=== PATIENT | male | born 1970 | race African-American/Black ===

== ENCOUNTER 2017-05-25 05:14 | Emergency (ER) | payer OTHER ==
[~2017-05-25] VITALS: Ht 177.8 cm; Wt 60.0 kg
[2017-05-25 05:19] VITALS: BP 147/98; PULSE 126; RESP 16; TEMP 99.1; O2SAT 98
[2017-05-25 05:22] VITALS: BP 147/98; PULSE 128; RESP 14; TEMP 99.1; O2SAT 99
--- NOTE | 2017-05-25 05:27 | PD ---
HPI Chief Complaint: Cardiac Complaint Time Seen by Provider: 05:17 Travel History International Travel<30 days: No Contact w/Intl Traveler<30days: No Traveled to known affect area: No History of Present Illness HPI 46-year-old male presents with palpitations and chest pain for the past 2 hours. He does note drinking a pint of alcohol today so history is difficult to obtain. Patient presents by ambulance. He is tachycardic on scene was sinus tachycardia in the 140s. He was given IV fluids in here he is in the 120s. He denies other complaints at this time. He denies recent travel or history of blood clots. PFSH Past Medical History Medical History: Denies Significant Hx Past Surgical History Surgical History: No Previous Surgery Family History Family Myocardial Infarction: Yes Social History Alcohol Use: Yes Tobacco Use: No Substance Use: No Allergies-Medications (Allergen,Severity, Reaction): Coded Allergies: No Known Allergies (Unverified , 05/25/17) Review of Systems ROS Limitations: Poor Historian Except as stated in HPI: all other systems reviewed are Neg Physical Exam Exam Limitations: Poor Historian Narrative GENERAL: Well-nourished, well-developed patient. SKIN: Warm and dry. HEAD: Normocephalic and atraumatic. EYES: No injection or drainage. ENT: No nasal drainage noted. NECK: Supple, trachea midline. CARDIOVASCULAR: Tachycardic rate and regular rhythm RESPIRATORY: Breath sounds equal bilaterally. No accessory muscle use. GASTROINTESTINAL: Abdomen soft, non-tender, nondistended. EXTREMITIES: No edema. NEUROLOGICAL: Awake and alert. Motor and sensory grossly within normal limits. Slurred speech. Data Data Last Documented VS Vital Signs Date Time Temp Pulse Resp B/P Pulse Ox O2 Delivery O2 Flow Rate FiO2 05/25/17 06:02 112 18 151/93 98 Room Air 05/25/17 05:22 99.1 Orders Electrocardiogram (05/25/17 05:17) Ckmb (Isoenzyme) Profile (05/25/17 05:17) Complete Blood Count With Diff (05/25/17 05:17) Comprehensive Metabolic Panel (05/25/17 05:17) D-Dimer (05/25/17 05:17) Magnesium (Mg) (05/25/17 05:17) Prothrombin Time / Inr (Pt) (05/25/17 05:17) Act Partial Throm Time (Ptt) (05/25/17 05:17) Troponin I (05/25/17 05:17) Chest, Single Ap (05/25/17 05:17) Ecg Monitoring (05/25/17 05:17) Bilateral Bp Monitoring (05/25/17 05:17) Iv Access Insert/Monitor (05/25/17 05:17) Oximetry (05/25/17 05:17) Aspirin (Aspirin) (05/25/17 05:30) Sodium Chloride 0.9% Flush (Ns Flush) (05/25/17 05:30) Sodium Chlorid 0.9% 500 Ml Inj (Ns 500 M (05/25/17 05:30) Drug Screen, Random Urine (05/25/17 05:17) Alcohol (Ethanol) (05/25/17 05:17) Lactic Acid (05/25/17 05:29) Urinalysis - C+S If Indicated (05/25/17 05:29) CKMB (05/25/17 05:20) CKMB% (05/25/17 05:20) Sodium Chlor 0.9% 1000 Ml Inj (Ns 1000 M (05/25/17 06:45) Labs Laboratory Tests Test 05/25/17 05/25/17 05:20 05:40 White Blood Count 13.5 TH/MM3 Red Blood Count 4.51 MIL/MM3 Hemoglobin 13.3 GM/DL Hematocrit 39.9 % Mean Corpuscular Volume 88.5 FL Mean Corpuscular Hemoglobin 29.4 PG Mean Corpuscular Hemoglobin 33.3 % Concent Red Cell Distribution Width 14.4 % Platelet Count 268 TH/MM3 Mean Platelet Volume 7.6 FL Neutrophils (%) (Auto) 80.3 % Lymphocytes (%) (Auto) 11.2 % Monocytes (%) (Auto) 8.2 % Eosinophils (%) (Auto) 0.1 % Basophils (%) (Auto) 0.2 % Neutrophils # (Auto) 10.8 TH/MM3 Lymphocytes # (Auto) 1.5 TH/MM3 Monocytes # (Auto) 1.1 TH/MM3 Eosinophils # (Auto) 0.0 TH/MM3 Basophils # (Auto) 0.0 TH/MM3 CBC Comment DIFF FINAL Differential Comment Prothrombin Time 11.4 SEC Prothromb Time International 1.0 RATIO Ratio Activated Partial 25.2 SEC Thromboplast Time D-Dimer Quantitative (PE/DVT) 0.29 MG/L FEU Sodium Level 137 MEQ/L Potassium Level 4.1 MEQ/L Chloride Level 104 MEQ/L Carbon Dioxide Level 22.0 MEQ/L Anion Gap 11 MEQ/L Blood Urea Nitrogen 15 MG/DL Creatinine 1.33 MG/DL Estimat Glomerular Filtration 70 ML/MIN Rate Random Glucose 97 MG/DL Calcium Level 8.3 MG/DL Magnesium Level 2.0 MG/DL Total Bilirubin 0.8 MG/DL Aspartate Amino Transf 32 U/L (AST/SGOT) Alanine Aminotransferase 30 U/L (ALT/SGPT) Alkaline Phosphatase 81 U/L Total Creatine Kinase 244 U/L Creatine Kinase MB 2.6 NG/ML Troponin I 0.03 NG/ML Total Protein 8.2 GM/DL Albumin 4.0 GM/DL Ethyl Alcohol Level LESS THAN 3 MG/DL Lactic Acid Level 1.7 mmol/L MDM Medical Decision Making Medical Screen Exam Complete: Yes Emergency Medical Condition: Yes Medical Record Reviewed: Yes (past history confirmed) Interpretation(s) EKG is sinus tachycardia at [address] changes or consecutive T-wave inversion CBC & BMP Diagram 05/25/17 05:20 Last 24 hours Impressions Chest X-Ray 05/25/17516 Signed Impressions: Service Date/Time: Thursday, May 25, 2017 05:18 - CONCLUSION: Cardiomegaly. No acute cardiopulmonary disease. 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 These risks include cardiac dysfunction, cardiac dysrhythmia, possible heart attack, possible stroke or . The patient indicated understanding of these risks and appeared to have the capacity to make this decision. Diagnosis Primary Impression: Chest pain Qualified Code: R07.9 - Chest pain, unspecified type Additional Impression: Palpitations Patient Instructions: General Instructions Additional Instructions: return for completion of testing when available Med/Other Pt SpecificInfo: No Change to Meds Disposition: 07 AGAINST MEDICAL ADVICE Condition: Stable Clemencia Sousa MD May 25, 2017 05:27 Clemencia Sousa MD May 25, 2017 05:27
[2017-05-25] MEDS ORDERED: SODIUM CHLORID 0.9% 500 ML INJ 500 ML IV ONE (05:30)
[2017-05-25] MEDS ORDERED: ASPIRIN 325 MG TAB PO ONE (05:30)
[2017-05-25] MEDS ORDERED: SODIUM CHLORIDE 0.9% FLUSH 10 ML FLUSH IVF PRN (05:30)
[2017-05-25 05:32] LABS: AUTOMATED NEUTROPHIL # 10.8 TH/MM3 (1.8-7.7); BASOPHIL % 0.2 % (0.0-2.0); EOSINOPHIL % 0.1 % (0.0-4.0); HEMATOCRIT 39.9 % (39.0-51.0); HEMO FLAGS DIFF FINAL; LYMPH % 11.2 % (9.0-44.0); LYMPHOCYTE # 1.5 TH/MM3 (1.0-4.8); MEAN CELL VOLUME 88.5 FL (80.0-100.0); MEAN CORPUSCULAR HEMOGLOBIN 29.4 PG (27.0-34.0); MEAN CORPUSCULAR HGB CONC 33.3 % (32.0-36.0); MONO % 8.2 % (0.0-8.0); NEUT % 80.3 % (16.0-70.0); PLATELET COUNT 268 TH/MM3 (150-450); RED BLOOD COUNT 4.51 MIL/MM3 (4.50-5.90); RED CELL DISTRIBUTION WIDTH 14.4 % (11.6-17.2); WHITE BLOOD COUNT 13.5 TH/MM3 (4.0-11.0)
--- NOTE | 2017-05-25 05:52 | RADRPT ---
EXAM DATE/TIME: 05/25/2017 05:18 [facility] COMPARISON: No previous studies available for comparison. INDICATIONS : Chest pain. MEDICAL HISTORY : None. SURGICAL HISTORY : None. ENCOUNTER: Initial ACUITY: 1 day PAIN SCORE: 6/10 LOCATION: Left chest FINDINGS: The cardiac silhouette is enlarged in transverse diameter. The lungs are free of acute parenchymal op acity. No effusions are identified. Osseous structures are intact. CONCLUSION: Cardiomegaly. No acute cardiopulmonary disease. Timothy Dong MD on May 25, 2017 at 5:50 Board Certified Radiologist. This report was verified electronically.
[2017-05-25 05:56] LABS: ALT (GPT) 30 U/L (12-78); ANION GAP 11 MEQ/L (5-15); AST (GOT) 32 U/L (15-37); BLOOD UREA NITROGEN 15 MG/DL (7-18); CHLORIDE 104 MEQ/L (98-107); GLOMERULAR FILTRATION RATE 70 ML/MIN (>89); POTASSIUM 4.1 MEQ/L (3.5-5.1); SODIUM (NA) 137 MEQ/L (136-145)
[2017-05-25 05:58] LABS: ALKALINE PHOSPHATASE 81 U/L (45-117); CREATINE KINASE 244 U/L (39-308); TOTAL BILIRUBIN ADULT 0.8 MG/DL (0.2-1.0)
[2017-05-25 06:02] VITALS: BP 151/93; PULSE 112; RESP 18; O2SAT 98
[2017-05-25 06:14] LABS: CKMB 2.6 NG/ML (0.5-3.6)
[2017-05-25 06:25] LABS: APTT (PATIENT) 25.2 SEC (24.3-30.1); PROTHROMBIN TIME - PATIENT 11.4 SEC (9.8-11.6)
[2017-05-25] MEDS ORDERED: SODIUM CHLOR 0.9% 1000 ML INJ 1,000 ML IV ONE (06:45)
--- NOTE | 2017-05-25 13:14 | EKG ---
Date Performed: 05/25/2017 Time Performed: 05:17:22 PTAGE: 46 years EKG: SINUS TACHYCARDIA BORDERLINE RIGHT AXIS DEVIATION ST ELEVATION, PROBABLY EARLY REPOLARIZATI ON ABNORMAL RHYTHM ECG NO PREVIOUS TRACING DOCTOR: Nancy Bryant Interpretating Date/Time 05/25/2017 13:11:13
== END 2017-05-25 06:45 | disposition left against medical advice (07) ==
LOC: NEPC 05:14
DX: R07.9 Chest pain, unspecified (principal); R00.2 Palpitations; R00.0 Tachycardia, unspecified; R94.31 Abnormal electrocardiogram [ECG] [EKG]; I51.7 Cardiomegaly
CPT/HCPCS: 71010; 80053; 80307; 82550; 82552; 83605; 83735; 84484; 85025; 85379; 85610; 85730; 93005; 96360; 99285; J7040

== ENCOUNTER 2017-11-18 01:19 | Emergency (ER) | payer SELFPAY ==
[~2017-11-18] VITALS: Ht 177.8 cm; Wt 90.0 kg
[2017-11-18 01:20] VITALS: BP 163/99; PULSE 101; RESP 16; TEMP 98.7; O2SAT 97
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
[2017-11-18] MEDS ORDERED: LORazepam 2 MG/ML VIAL IM ONE (02:30)
[2017-11-18] MEDS ORDERED: ZIPRASIDONE MESYLATE 20 MG VIAL IM ONE (02:30)
[2017-11-18 03:30] VITALS: RESP 15
[2017-11-18 03:38] LABS: ALBUMIN 4.2 GM/DL (3.4-5.0); ALT (GPT) 33 U/L (12-78); AST (GOT) 28 U/L (15-37); AUTOMATED NEUTROPHIL # 7.6 TH/MM3 (1.8-7.7); BASOPHIL # 0.3 TH/MM3 (0-0.2); BASOPHIL % 2.5 % (0.0-2.0); BICARBONATE 20.9 MEQ/L (21.0-32.0); BLOOD UREA NITROGEN 24 MG/DL (7-18); CALCIUM 8.8 MG/DL (8.5-10.1); CHLORIDE 108 MEQ/L (98-107); CREATININE 1.63 MG/DL (0.60-1.30); EOSINOPHIL # 0.2 TH/MM3 (0-0.4); EOSINOPHIL % 1.7 % (0.0-4.0); GLOMERULAR FILTRATION RATE 55 ML/MIN (>89); GLUCOSE,RANDOM 85 MG/DL (74-106); HEMATOCRIT 36.2 % (39.0-51.0); HEMOGLOBIN 13.4 GM/DL (13.0-17.0); LYMPH % 20.9 % (9.0-44.0); LYMPHOCYTE # 2.3 TH/MM3 (1.0-4.8); MEAN CELL VOLUME 89.3 FL (80.0-100.0); MEAN PLATELET VOLUME 7.8 FL (7.0-11.0); MONO % 7.2 % (0.0-8.0); MONOCYTE # 0.8 TH/MM3 (0-0.9); NEUT % 67.7 % (16.0-70.0); PLATELET COUNT 348 TH/MM3 (150-450); RED BLOOD COUNT 4.06 MIL/MM3 (4.50-5.90); RED CELL DISTRIBUTION WIDTH 15.3 % (11.6-17.2); SODIUM (NA) 139 MEQ/L (136-145); WHITE BLOOD COUNT 11.2 TH/MM3 (4.0-11.0)
[2017-11-18 03:48] LABS: ALKALINE PHOSPHATASE 91 U/L (45-117); TOTAL BILIRUBIN ADULT 0.7 MG/DL (0.2-1.0); TOTAL PROTEIN 8.4 GM/DL (6.4-8.2)
[2017-11-18 10:39] VITALS: BP 137/86; PULSE 98; RESP 18; O2SAT 100
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
--- NOTE | 2017-11-18 13:50 | PD ---
Physical Exam Date Seen by Provider: Nov 18, 2017 Time Seen by Provider: 13:49 Narrative 47-year-old male with history of bipolar disorder presents emergency department for voluntary psychiatric evaluation, he was medically cleared and seen by psychiatric services. Patient was felt stable for outpatient discharge through Dr. Uribe. Patient remains medically stable at time of discharge. Patient is to follow-up as per psychiatric note. Data Data Last Documented VS Vital Signs Date Time Temp Pulse Resp B/P (MAP) Pulse Ox O2 Delivery O2 Flow Rate FiO2 11/18/17 10:39 98 18 137/86 (103) 100 Room Air 11/18/17 01:20 98.7 Orders Orders Complete Blood Count With Diff (11/18/17 02:17) Comprehensive Metabolic Panel (11/18/17 02:17) Thyroid Stimulating Hormone (11/18/17 02:17) Psych Screen (11/18/17 02:17) Lorazepam Inj (Ativan Inj) (11/18/17 02:30) Drug Screen, Random Urine (11/18/17 02:17) Alcohol (Ethanol) (11/18/17 02:17) Salicylates (Aspirin) (11/18/17 02:17) Ziprasidone Inj (Geodon Inj) (11/18/17 02:30) Restraints Violent (11/18/17 02:18) Diet Regular Basic (11/18/17 Breakfast) Diet Regular Basic (11/18/17 Lunch) Ed Discharge Order (11/18/17 13:50) Labs Laboratory Tests Test 11/18/17 02:50 11/18/17 09:15 White Blood Count 11.2 TH/MM3 Red Blood Count 4.06 MIL/MM3 Hemoglobin 13.4 GM/DL Hematocrit 36.2 % Mean Corpuscular Volume 89.3 FL Mean Corpuscular Hemoglobin 33.0 PG Mean Corpuscular Hemoglobin Concent 37.0 % Red Cell Distribution Width 15.3 % Platelet Count 348 TH/MM3 Mean Platelet Volume 7.8 FL Neutrophils (%) (Auto) 67.7 % Lymphocytes (%) (Auto) 20.9 % Monocytes (%) (Auto) 7.2 % Eosinophils (%) (Auto) 1.7 % Basophils (%) (Auto) 2.5 % Neutrophils # (Auto) 7.6 TH/MM3 Lymphocytes # (Auto) 2.3 TH/MM3 Monocytes # (Auto) 0.8 TH/MM3 Eosinophils # (Auto) 0.2 TH/MM3 Basophils # (Auto) 0.3 TH/MM3 CBC Comment AUTO DIFF Differential Comment AUTO DIFF CONFIRMED Platelet Estimate NORMAL Platelet Morphology Comment NORMAL Red Cell Morphology Comment NORMAL Blood Urea Nitrogen 24 MG/DL Creatinine 1.63 MG/DL Random Glucose 85 MG/DL Total Protein 8.4 GM/DL Albumin 4.2 GM/DL Calcium Level 8.8 MG/DL Alkaline Phosphatase 91 U/L Aspartate Amino Transf (AST/SGOT) 28 U/L Alanine Aminotransferase (ALT/SGPT) 33 U/L Total Bilirubin 0.7 MG/DL Sodium Level 139 MEQ/L Potassium Level 3.7 MEQ/L Chloride Level 108 MEQ/L Carbon Dioxide Level 20.9 MEQ/L Anion Gap 10 MEQ/L Estimat Glomerular Filtration Rate 55 ML/MIN Thyroid Stimulating Hormone 3rd Gen 0.970 uIU/ML Salicylates Level LESS THAN 1.7 MG/DL Ethyl Alcohol Level LESS THAN 3 MG/DL Urine Opiates Screen NEG Urine Barbiturates Screen NEG Urine Amphetamines Screen NEG Urine Benzodiazepines Screen NEG Urine Cocaine Screen POS Urine Cannabinoids Screen POS MDM Medical Record Reviewed: Yes Supervised Visit with MAC: Yes Narrative Course 47-year-old male with history of bipolar disorder presents emergency department for voluntary psychiatric evaluation, he was medically cleared and seen by psychiatric services. Patient was felt stable for outpatient discharge through Dr. Uribe. Patient remains medically stable at time of discharge. Patient is to follow-up as per psychiatric note. Diagnosis Primary Impression: Cocaine abuse Departure Forms: Work Release Enter return to work date: Nov 19, 2017 Condition: Stable Jonas Truong Nov 18, 2017 13:50
== END 2017-11-18 14:45 | disposition home or self-care (01) ==
LOC: NEPD 01:19 → NEPJ 14:45
DX: F14.10 Cocaine abuse, uncomplicated (principal); F11.10 Opioid abuse, uncomplicated; I10 Essential (primary) hypertension; E78.00 Pure hypercholesterolemia, unspecified; F31.9 Bipolar disorder, unspecified
CPT/HCPCS: 80053; 80307; 84443; 85025; 96372; 99284; J2060; J3486

== ENCOUNTER 2017-12-26 20:42 | Inpatient (IN) | payer OTHER ==
[~2017-12-26] VITALS: Ht 177.8 cm; Wt 93.0 kg
[2017-12-26 21:57] VITALS: BP 117/78; PULSE 128; RESP 16; TEMP 97.9; O2SAT 99
[2017-12-26] MEDS ORDERED: LISI-519 PO (22:01)
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
[2017-12-26 22:43] LABS: AUTOMATED NEUTROPHIL # 11.1 TH/MM3 (1.8-7.7); BASOPHIL % 0.3 % (0.0-2.0); EOSINOPHIL # 0.1 TH/MM3 (0-0.4); EOSINOPHIL % 0.8 % (0.0-4.0); HEMATOCRIT 39.7 % (39.0-51.0); HEMOGLOBIN 13.5 GM/DL (13.0-17.0); LYMPH % 17.1 % (9.0-44.0); LYMPHOCYTE # 2.7 TH/MM3 (1.0-4.8); MEAN CELL VOLUME 85.4 FL (80.0-100.0); MEAN CORPUSCULAR HEMOGLOBIN 29.1 PG (27.0-34.0); MEAN PLATELET VOLUME 7.6 FL (7.0-11.0); MONO % 10.6 % (0.0-8.0); MONOCYTE # 1.7 TH/MM3 (0-0.9); NEUT % 71.2 % (16.0-70.0); PLATELET COUNT 387 TH/MM3 (150-450); RED BLOOD COUNT 4.65 MIL/MM3 (4.50-5.90); RED CELL DISTRIBUTION WIDTH 14.6 % (11.6-17.2); WHITE BLOOD COUNT 15.6 TH/MM3 (4.0-11.0)
[2017-12-26 22:55] LABS: ALBUMIN 4.4 GM/DL (3.4-5.0); ALT (GPT) 78 U/L (12-78); AST (GOT) 153 U/L (15-37); BICARBONATE 23.3 MEQ/L (21.0-32.0); BLOOD UREA NITROGEN 26 MG/DL (7-18); CALCIUM 9.1 MG/DL (8.5-10.1); CHLORIDE 104 MEQ/L (98-107); GLOMERULAR FILTRATION RATE 53 ML/MIN (>89); GLUCOSE,RANDOM 91 MG/DL (74-106); SODIUM (NA) 138 MEQ/L (136-145)
[2017-12-26 22:57] LABS: ALKALINE PHOSPHATASE 114 U/L (45-117); TOTAL BILIRUBIN ADULT 0.6 MG/DL (0.2-1.0); TOTAL PROTEIN 8.6 GM/DL (6.4-8.2)
[2017-12-27 01:13] VITALS: BP 135/68; PULSE 115; RESP 18; TEMP 98.6; O2SAT 99
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
[2017-12-27] MEDS ORDERED: OLANZapine IM 10 MG VIAL IM ONE (02:45)
--- NOTE | 2017-12-27 03:05 | RADRPT ---
EXAM DATE/TIME: 12/27/2017 02:44 [facility] COMPARISON: No previous studies available for comparison. INDICATIONS : Left foot pain, no injury. MEDICAL HISTORY : None. SURGICAL HISTORY : None. ENCOUNTER: Initial ACUITY: 1 day PAIN SCORE: 9/10 LOCATION: Left foot, fifth digit. FINDINGS: Three view examination of the left foot demonstrates no soft tissue swelling, dislocation, or fractur e. The tarsal bones appear intact. The interphalangeal and metatarsophalangeal joints are intact. The calcaneus is intact. Bony mineralization is normal. The fibular sesamoid is bipartite and has moderate degenerative/hypertrophic changes. CONCLUSION: No acute abnormality of the left foot/little toe. Degenerative changes of the fibular sesamoid noted. Malik Jeronimo MD on December 27, 2017 at 3:02 Board Certified Radiologist. This report was verified electronically.
[2017-12-27 10:40] VITALS: BP 126/73; PULSE 106; RESP 18; TEMP 98.4; O2SAT 98
[2017-12-27] MEDS ORDERED: LORA-474 PO (12:17)
[2017-12-27] MEDS ORDERED: SERO100T PO (12:17)
[2017-12-27] MEDS ORDERED: ZOLO50TA PO (12:17)
[2017-12-27] MEDS ORDERED: HALOPERIDOL LACTATE 5 MG/ML AMP ONE (15:09)
[2017-12-27] MEDS ORDERED: LORazepam 2 MG/ML VIAL ONE (15:10)
[2017-12-27] MEDS ORDERED: diphenhydrAMINE HCL 50 MG/ML VIAL ONE (15:13)
[2017-12-28 06:34] VITALS: BP 159/98; PULSE 82; RESP 18; TEMP 97.7; O2SAT 100
[2017-12-28 08:38] LABS: BICARBONATE 28.1 MEQ/L (21.0-32.0); BLOOD UREA NITROGEN 15 MG/DL (7-18); CALCIUM 8.6 MG/DL (8.5-10.1); CHLORIDE 103 MEQ/L (98-107); CHOLESTEROL 216 MG/DL (120-200); CHOLESTEROL/ HDL RATIO 4.77 RATIO; GLOMERULAR FILTRATION RATE 72 ML/MIN (>89); GLUCOSE,RANDOM 86 MG/DL (74-106); HDL CHOLESTEROL 45.2 MG/DL (40.0-60.0); LDL CHOLESTEROL 137 MG/DL (0-99); SODIUM (NA) 139 MEQ/L (136-145); TRIGLYCERIDES 171 MG/DL (42-150)
[2017-12-28 12:40] LABS: HEMOGLOBIN A1C 5.5 % (4.3-6.0)
[2017-12-28] MEDS ORDERED: hydrOXYzine HCL 50 MG TAB PO PRN (12:45)
[2017-12-28] MEDS ORDERED: diphenhydrAMINE HCL 50 MG CAP PO PRN (12:45)
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
--- NOTE | 2017-12-28 15:09 | PD.CONS ---
HPI Service [facility] Consult Requested By Dr. Malik Schilling Reason for Consult Medical management Primary Care Physician Dr. Ariela Wells Diagnoses: History of Present Illness Mr. Urena is a 47 y/o AAM with HTN, hyperlipidemia and depression. He was brought into the ED at [facility] as a New Act on 12/26/17 and per the ER documentation the pt reportedly breaking into some living facility and taking off all of his clothes and made aggressive statements and movements towards the resident of the home. UDS was negative. Pt reports that his problem was pain in the left foot because of some "bug bites." Foot Xray performed in the ED noted no acute abnormality of the left foot/little toe and degenerative changes of the fibular sesamoid noted. Pt states that he has been taking his home medications, Lisinopril/HCTZ and Simvastatin. He denies any abd pain, chest pain , nausea/vomiting, reflux, headaches, dizziness, palpitations, or SOB. Review of Systems Constitutional: DENIES: Fever, Chills, Night Sweats Respiratory: DENIES: Shortness of breath Cardiovascular: DENIES: Chest pain, Lower Extremity Edema Gastrointestinal: DENIES: Abdominal pain, Nausea, Vomiting Genitourinary: DENIES: Hematuria, Dysuria Neurologic: DENIES: Headache, Localized weakness Past Family Social History Past Medical History HTN Hyperlipidemia Depression Insomnia Past Surgical History None reported Reported Medications Per [facility] Records: --Lisinopril/HCTZ 10/12.5mg 2 tablets PO DAILY --Simvastatin 10mg PO QHS --Trazodone 100Mg PO i-ii QHS ?Zoloft (Sertraline HCl) 50 Mg Tab 50 Mg PO DAILY ?Ativan (Lorazepam) 1 Mg Tab 1 Mg PO Q6H PRN ?Seroquel (Quetiapine Fumarate) 100 Mg Tab 100 Mg PO HS Allergies: Coded Allergies: No Known Allergies (Unverified Adverse Reaction, Unknown, 12/26/17) Family History Noncontributory Social History Pt denies any tobacco use or alcohol use Pt had previous positive UDS for cocaine and marijuana in October 2017 Physical Exam Vital Signs Vital Signs Date Time Temp Pulse Resp B/P (MAP) Pulse Ox O2 Delivery O2 Flow Rate FiO2 12/28/17 06:34 97.7 82 18 159/98 (118) 100 Physical Exam GENERAL: This is a well-nourished, well-developed patient, in no apparent distress. SKIN: Dry cracked skin on the feet HEENT: Atraumatic. Normocephalic. No temporal or scalp tenderness. No scleral icterus. Airway patent. NECK: Trachea midline, supple, nontender. CARDIO: Regular. RESP: CTA bilaterally. No wheezes, rales, or rhonchi. ABD: +BS, soft, non-tender, nondistended. EXT: Extremities without clubbing, cyanosis, or edema. NEURO: Awake and alert. Motor and sensory grossly within normal limits. Normal speech. Laboratory Laboratory Tests Test 12/28/17 06:31 Blood Urea Nitrogen 15 Creatinine 1.30 Random Glucose 86 Calcium Level 8.6 Sodium Level 139 Potassium Level 3.7 Chloride Level 103 Carbon Dioxide Level 28.1 Anion Gap 8 Estimat Glomerular Filtration Rate 72 Hemoglobin A1c 5.5 Triglycerides Level 171 Cholesterol Level 216 LDL Cholesterol 137 HDL Cholesterol 45.2 Cholesterol/HDL Ratio 4.77 Result Diagram: 12/26/17 2157 12/28/17 0631 Imaging Last Impressions Foot X-Ray 12/27/17 0000 Signed Impressions: Service Date/Time: Wednesday, December 27, 2017 02:44 - CONCLUSION: No acute abnormality of the left foot/little toe. Degenerative changes of the fibular sesamoid noted. Malik Jeronimo MD Assessment and Plan Problem List: (1) Paranoid type schizophrenia, chronic state ICD Codes: F20.0 - Paranoid schizophrenia Plan: - Pt is a 47 y/o male with HTN and hyperlipidemia who was admitted under New Act to the psychiatric unit on 12/26/17 as per the ER documentation the pt reportedly breaking into some living facility and taking off all of his clothes and made aggressive statements and movements towards the resident of the home. - UDS was negative. - Management per Psychiatry - Pts main complaint is pain in the left foot because of some "bug bites." - Foot Xray performed in the ED noted no acute abnormality of the left foot/ little toe and degenerative changes of the fibular sesamoid noted. - We will give 3 doses of Naproxen and apply Bacitracin BID for the abrasions noted on his left foot which look like he had scratched some bug bites. (2) Hypertension, benign ICD Codes: I10 - Essential (primary) hypertension Status: Chronic Plan: - Cont. home meds - Monitor (3) Hyperlipidemia ICD Codes: E78.5 - Hyperlipidemia, unspecified Status: Chronic Plan: - Cont. home meds Assessment and Plan Patient examined. Assessment and plan formulated with Laurel Lyn PA-C. I agree with the above. paranoid shizophrenia. htn stable. pt focused on "bug bites and abrasion on ankle" asking for abx and pain med. will give some naprosyn and topical abx. Laurel Lyn Dec 28, 2017 15:09 Humberto Khan MD Dec 28, 2017 16:24
[2017-12-28] MEDS ORDERED: LISI10TA PO (16:01)
[2017-12-28] MEDS ORDERED: SIMV10TA PO (16:01)
[2017-12-28 17:44] VITALS: BP 140/87; PULSE 84; RESP 18; TEMP 98; O2SAT 99
[2017-12-28] MEDS: BACITRACIN TOP OINT 15 GM TUBE TOPICAL SCH ×2 (18:35→20:57)
[2017-12-28] MEDS: NAPROXEN 500 MG TAB PO SCH (18:35)
[2017-12-28] MEDS: QUEtiapine FUMARATE 300 MG TAB PO SCH (20:45)
[2017-12-28] MEDS ORDERED: NON-FORMULARY DRUG (Simvastatin 10 MG) PO SCH (21:00)
[2017-12-28] MEDS: PRAVASTATIN SOD 20 MG TAB PO SCH (22:00)
[2017-12-29] MEDS: NAPROXEN 500 MG TAB PO SCH ×2 (05:00→16:35)
[2017-12-29 06:20] VITALS: BP 155/90; PULSE 81; RESP 17; TEMP 98.1; O2SAT 96
[2017-12-29] MEDS ORDERED: NON-FORMULARY DRUG (Lisinopril-Hctz 2 TAB) PO SCH (09:00)
[2017-12-29] MEDS ORDERED: LISINOPRIL 5 MG TAB PO SCH (09:00)
[2017-12-29] MEDS ORDERED: HYDROCHLOROTHIAZIDE 25 MG TAB PO SCH (09:00)
[2017-12-29] MEDS: LISINOPRIL 10 MG TAB PO SCH (09:27)
[2017-12-29] MEDS: SERTRALINE HCL 50 MG TAB PO SCH (09:27)
[2017-12-29] MEDS: BACITRACIN TOP OINT 15 GM TUBE TOPICAL SCH ×2 (09:29→20:59)
[2017-12-29] MEDS: HYDROCHLOROTHIAZIDE 12.5 MG CAP PO SCH (11:00)
--- NOTE | 2017-12-29 12:05 | PD.PSY.CON ---
Provisional Diagnosis Admission Date Dec 27, 2017 at 15:18 [place] I. Schizophrenia chronic paranoid type F 20.0 History of Present Illness Service Psychiatry Consult Requested By Psychiatry Reason for Consult 2nd Opinion Primary Care Physician Unknown HPI Pt seen and discussed with staff. Chart reviewed. Pt is a 47 YOAAM admitted to [facility] under a BA due to psychosis after he broke into a home naked, was aggressive and told police he was being attacked by bugs. Pt states that he has a previous diagnosis of bipolar disorder and schizophrenia but only takes seroquel "when I can't sleep". He points to bugs and lesions on his body that are not present and insists that his entire foot and leg are black which is not true. Inisght is poor and memory of events leading to BA is impaired. He actively denies cocaine usage despite positive lab, and states DOC are pills. Pt was agitated upon admission and received an ETO of haldol, ativan and benadryl in ED to maintain safety. . P Review of Systems Psychiatric: COMPLAINS OF: Confusion, Mood changes, Hallucinations, Agitation Past Family Social History Coded Allergies: No Known Allergies (Unverified Adverse Reaction, Unknown, 12/26/17) Past Medical History previous treatment and hospitalization for bipolar disorder and schizophrenia Reported Medications Simvastatin (Simvastatin) 10 Mg Tab, 10 MG PO HS for Cholesterol Management, # 30 TAB 0 Refills 12/28/17 Lisinopril-Hctz (Lisinopril-Hctz) 10-12.5 Mg Tab, 2 TAB PO DAILY for Blood Pressure Management, #30 TAB 0 Refills 12/28/17 Sertraline (Zoloft) 50 Mg Tab, 50 MG PO DAILY, #30 TAB 0 Refills 12/27/17 Lorazepam (Ativan) 1 Mg Tab, 1 MG PO Q6H Y for ANXIETY AND/OR AGITATION, #10 TAB 0 Refills 12/27/17 Quetiapine (Seroquel) 100 Mg Tab, 100 MG PO HS, #30 TAB 0 Refills 12/27/17 Current Medications Medications (Trade) Dose Ordered Sig/Justine Route Start Time Stop Time Status Last Admin (Benadryl) 50 mg HS PRN PO 12/28/17 12:45 (Atarax) 50 mg Q6H PRN PO 12/28/17 12:45 (SEROquel) 300 mg HS PO 12/28/17 21:00 12/28/17 20:45 (Zoloft) 50 mg DAILY PO 12/29/17 09:00 12/29/17 09:27 (Naprosyn) 500 mg Q12H PO 12/28/17 17:00 12/29/17 17:01 12/29/17 05:00 (Baciguent Oint) 1 applic Q12HR TOPICAL 12/28/17 16:15 12/29/17 09:29 (Prinivil) 20 mg DAILY PO 12/29/17 09:00 12/29/17 09:27 (Pravachol) 20 mg HS PO 12/28/17 21:00 12/28/17 22:00 (Microzide) 25 mg DAILY PO 12/29/17 11:00 Family Psych History "all of them are crazy" Social History Works for a [employer] agency. Lives alone. Hx of substance abuse. Reports that he has been [facility] Patient's Strengths (min. 2) Patient verbal irritable axis health care Physical Exam No acute distress. See ED Vital Signs Vital Signs Date Time Temp Pulse Resp B/P (MAP) Pulse Ox O2 Delivery O2 Flow Rate FiO2 12/29/17 06:20 98.1 81 17 155/90 (111) 96 12/27/17 10:40 Room Air Mental Status Examination Appearance: Appropriate Consciousness: Alert Orientation: Person Motor Activity: Normal gait Speech: Rapid Language: Adequate Fund of Knowledge: Adequate Attention and Concentration: Easily Distracted Memory: Impaired Mood: Anxious, Irritable Affect: Anxious Thought Process & Associations: Tangential Thought Content: Bizarre thinking, Delusional Hallucination Type: Visual, Tactile Delusion Type: Bizarre Suicidal Ideation: No Suicidal Plan: No Suicidal Intention: No Homicidal Ideation: No Homicidal Plan: No Homicidal Intention: No Insight: Poor Judgment: Poor Assessment & Plan Problem List: (1) Paranoid type schizophrenia, chronic state ICD Codes: F20.0 - Paranoid schizophrenia Assessment & Plan I agree that pt meets criteria for involuntary hospitalization due to current states of psychosis and recent aggression due to psychosis. 2nd Opinion paperwork completed. Estimated LOS: days Request HC Surrog/Guard Advoc?: Shelbi Kennedy MD Dec 29, 2017 12:05
[2017-12-29 17:30] VITALS: BP 138/93; PULSE 94; RESP 18; TEMP 97.9; O2SAT 98
[2017-12-29] MEDS: PRAVASTATIN SOD 20 MG TAB PO SCH (20:58)
[2017-12-29] MEDS: QUEtiapine FUMARATE 300 MG TAB PO SCH (20:59)
[2017-12-30 06:01] VITALS: BP 140/83; PULSE 80; RESP 18; TEMP 97.6; O2SAT 97
[2017-12-30] MEDS: BACITRACIN TOP OINT 15 GM TUBE TOPICAL SCH (09:00)
[2017-12-30] MEDS: LISINOPRIL 10 MG TAB PO SCH (09:59)
[2017-12-30] MEDS: SERTRALINE HCL 50 MG TAB PO SCH (09:59)
[2017-12-30] MEDS: HYDROCHLOROTHIAZIDE 12.5 MG CAP PO SCH (09:59)
--- NOTE | 2017-12-30 11:50 | HHI.PYPN ---
Subjective Remarks Patient seen today in day room with nurse Bea, chart reviewed, patient compliant medications, patient discussed with nurse. Patient calmer less vigilance today more cooperative with better eye contact. Today he denies suicidality homicidality voices or visions. States he desires still to get into [facility] though he has a home to return to. We will have counselor and staff outpatient contact [facility] to verify bed assignment otherwise continue medication no change Review of Systems Except as stated in HPI: all other systems reviewed are Neg Mental Status Examination Appearance: Appropriate Consciousness: Alert Orientation: Person Motor Activity: Normal gait Speech: Rapid Language: Adequate Fund of Knowledge: Adequate Attention and Concentration: Easily Distracted Memory: Impaired Mood: Anxious, Irritable Affect: Anxious Thought Process & Associations: Tangential Thought Content: Bizarre thinking, Delusional Hallucination Type: Visual, Tactile Delusion Type: Bizarre Suicidal Ideation: No Suicidal Plan: No Suicidal Intention: No Homicidal Ideation: No Homicidal Plan: No Homicidal Intention: No Insight: Poor Judgment: Poor Results Vitals/IOs Vital Signs Date Time Temp Pulse Resp B/P (MAP) Pulse Ox O2 Delivery O2 Flow Rate FiO2 12/30/17 06:01 97.6 80 18 140/83 (102) 97 12/27/17 10:40 Room Air Assessment & Plan Problem List: (1) Paranoid type schizophrenia, chronic state ICD Codes: F20.0 - Paranoid schizophrenia Assessment & Plan Estimated LOS: days patient psychosis is decreasing his calmer less paranoia less vigilance more cooperative. Compliant medications. For now continue treatment Justification for Cont. Inpt. At this time patient will decompensate the placed a lower level of care Discharge Planning Patient continues to work with [facility] Request HC Surrog/Guard Advoc?: No Malik Schilling MD Dec 30, 2017 11:50
[2017-12-30] MEDS ORDERED: ZOLO50TA PO (14:13)
[2017-12-30] MEDS ORDERED: PRAV20TA PO (14:13)
[2017-12-30] MEDS ORDERED: QUET1TAB10 PO (14:13)
[2017-12-30] MEDS ORDERED: HYDR25TA5 PO (14:13)
[2017-12-30] MEDS ORDERED: LISI10TA3 PO (14:13)
--- NOTE | 2017-12-30 14:18 | HHI.DS ---
Psychiatry Discharge Summary Inpatient Psychiatric care?: Yes Advance Directive: No Reason Not Provided: DOES NOT HAVE Mental Health AdvanceDirective: No Health Care Proxy: No Admission Admission Date Dec 27, 2017 at 15:18 Admission Diagnosis: (1) Paranoid type schizophrenia, chronic state ICD Code: F20.0 - Paranoid schizophrenia Brief History Pt seen and discussed with staff. Chart reviewed. Pt is a 47 YOAAM admitted to [facility] under a BA due to psychosis after he broke into a home naked, was aggressive and told police he was being attacked by bugs. Pt states that he has a previous diagnosis of bipolar disorder and schizophrenia but only takes seroquel "when I can't sleep". He points to bugs and lesions on his body that are not present and insists that his entire foot and leg are black which is not true. Inisght is poor and memory of events leading to BA is impaired. He actively denies cocaine usage despite positive lab, and states DOC are pills. Pt was agitated upon admission and received an ETO of haldol, ativan and benadryl in ED to maintain safety. . P Tobacco Use In Past 30 Days: No Tobacco Past 30 Days Alcohol Use: Monthly or Less Hospital Course Patient's hospital course is uneventful his initial irritability paranoia vigilance softened somewhat as he became accustomed to and developed some relationship with staff. He did make significant effort to verify his placement in [facility]. Patient quite weekend, has been compliant with his medications, he now denies suicidality homicidality voices or visions. It appears as a bed available for him at [facility] in [place] today. Thus patient was discharged today Rx 1 month follow through facilities through [facility] Results Blood Pressure 140 / 83 Vital Signs Date Time Temp Pulse Resp B/P (MAP) Pulse Ox O2 Delivery O2 Flow Rate FiO2 12/30/17 06:01 97.6 80 18 140/83 (102) 97 12/27/17 10:40 Room Air Laboratory Tests Test 12/28/17 06:31 Estimat Glomerular Filtration Rate 72 ML/MIN (>89) Triglycerides Level 171 MG/DL (42-150) Cholesterol Level 216 MG/DL (120-200) LDL Cholesterol 137 MG/DL (0-99) Laboratory Results Test 12/28/17 06:31 Cholesterol Level 216 MG/DL (120-200) HDL Cholesterol 45.2 MG/DL (40.0-60.0) Hemoglobin A1c 5.5 % (4.3-6.0) LDL Cholesterol 137 MG/DL (0-99) Triglycerides Level 171 MG/DL (42-150) Summary of Procedures None done Imaging Last Impressions Foot X-Ray 12/27/17 0000 Signed Impressions: Service Date/Time: Wednesday, December 27, 2017 02:44 - CONCLUSION: No acute abnormality of the left foot/little toe. Degenerative changes of the fibular sesamoid noted. Malik Jeronimo MD Pending results at discharge: No Medications # of Antipsychotic meds at D/C: 1 Approp Antipsych med options 1 - Minimum of three failed multiple trials of monotherapy. 2 - Documented plan to taper to monotherapy due to previous use of multiple meds OR cross-taper in progress at D/C. 3 - Documentation of augmentation of Clozapine. 4 - Justification other than those listed in allowable values 1-3, document here : Discharge Discharge Date: Dec 30, 2017 Discharge Diagnosis: (1) Paranoid type schizophrenia, chronic state Diagnosis: Principal ICD Code: F20.0 - Paranoid schizophrenia Pt Condition on Discharge: Stable Discharge Disposition: ACLF/SENIOR CARE Discharge Instructions Diet Instructions: As Tolerated, No Restrictions Activities you can perform: Regular-No Restrictions Discharge Time > 30 minutes Mental Status Examination Appearance: Appropriate Consciousness: Alert Orientation: Person Motor Activity: Normal gait Speech: Rapid Language: Adequate Fund of Knowledge: Adequate Attention and Concentration: Easily Distracted Memory: Impaired Mood: Anxious, Irritable Affect: Anxious Thought Process & Associations: Tangential Thought Content: Bizarre thinking, Delusional Hallucination Type: Visual, Tactile Delusion Type: Bizarre Suicidal Ideation: No Suicidal Plan: No Suicidal Intention: No Homicidal Ideation: No Homicidal Plan: No Homicidal Intention: No Insight: Poor Judgment: Poor Discharge/Advance Care Plan Health Problems: (1) Paranoid type schizophrenia, chronic state Goals to promote your health * To prevent worsening of your condition and complications * To maintain your health at the optimal level Directions to meet your goals Take your medications as prescribed Follow your dietary instruction Follow activity as directed Keep your appointments as scheduled Take your immunizations and boosters as scheduled If your symptoms worsen call your PCP, if no PCP go to Urgent Care Center or Emergency Room For 13/05 questions related to your inpatient stay or results of tests pending at discharge, please contact Dr. Malik Schilling at Smoking is Dangerous to Your Health. Avoid second hand smoking Malik Schilling MD Dec 30, 2017 14:18
== END 2017-12-30 15:49 | DRG 885 ==
LOC: NEDAMB 20:42 → NEDA 12-27 15:18 → H270 12-27 15:20
PROVIDERS: ADMIT Psychiatry & Neurology Psychiatry; ATTEND Psychiatry & Neurology Psychiatry
DX: F20.0 Paranoid schizophrenia (principal); I10 Essential (primary) hypertension; E78.5 Hyperlipidemia, unspecified; G47.00 Insomnia, unspecified; M79.672 Pain in left foot; Z56.0 Unemployment, unspecified; Z79.899 Other long term (current) drug therapy
CPT/HCPCS: 73630; 80048; 80053; 80061; 80307; 83036; 85025; 96372; J1200; J1630; J2060